=== PATIENT | male | born 1995 | race Caucasian/White ===

== ENCOUNTER 2023-07-24 13:34 | Emergency (ER) | payer OTHER, SELFPAY ==
--- NOTE | ~2023-07-24 | CT_ITS ---
EXAMINATION: CT abdomen pelvis w con DATE: 07/24/2023 15:01 INDICATION: Nausea and vomiting. Bowel obstruction. Abdominal pain. TECHNIQUE: Computed tomography (CT) of the abdomen and pelvis was performed with 100 mL Omnipaque 350 intravenous contrast. Automated exposure control and iterative reconstruction technique were employe d. The dose-length product was 1754.28 mGy-cm. COMPARISON: None. FINDINGS: The visualized portions of the lung bases are clear without pneumonia or pleural effusion. The heart size is normal. No pericardial effusion. The liver, gallbladder, spleen, pancreas, adrenal glands, and kidneys are normal. There is prominent fat in the inguinal canals that may be hernias. Th ere are no dilated loops of bowel. The appendix is normal. There are no pathologically enlarged lymph nodes. There is no free intraperitoneal fluid. There is a 4.9 x 1.8 cm subcutaneous mass in right bu ttock with tract to the skin. There is mild lumbar spondylosis. IMPRESSION: 1. Prominent fat in the inguinal canals that may be hernias. 2. 4.9 x 1.8 cm subcutaneous mass in right buttock with tract to the skin. This finding may be a jake al or infection/scarring. Reviewed, dictated and finalized at location E. IMPRESSION: 1. Prominent fat in the inguinal canals that may be hernias. 2. 4.9 x 1.8 cm subcutaneous mass in right buttock with tract to the skin. This finding may be a hematoma or infection/scarring.
[2023-07-24 13:55] VITALS: BP 143/92; PULSE 101; RESP 20; TEMP 36.7; O2SAT 97
[2023-07-24 14:33] LABS: Appearance Urine Clear (Clear); Bilirubin Urine Negative (Negative); Blood Urine Negative (Negative); Color Urine Yellow (Yellow); Glucose Urine UA Negative (Negative); Ketones Urine Trace mg/dL (Negative); Leukocyte Esterase Ur Negative LEU/UL (Negative); Nitrate Urine Negative (Negative); Protein Urine Negative (Negative); Specific Grav Ur 1.024 (1.001-1.035)
--- NOTE | 2023-07-24 14:34 | ED.ABDPAIN ---
HPI - Abdominal Pain General Chief Complaint: Abdominal Pain <THUY Navarrete Last Filed: 07/24/23 18:53> Stated Complaint: abd pain, nausea, diarrhea <THUY Navarrete Last Filed: 07/24/23 18:53> Time Seen by Provider: 07/24/23 14:34 <THUY Navarrete Last Filed: 07/24/23 18:53> Source: patient <THUY Navarrete Last Filed: 07/24/23 18:53> Mode of arrival: ambulatory <THUY Navarrete Last Filed: 07/24/23 18:53> Limitations: no limitations <THUY Navarrete Last Filed: 07/24/23 18:53> History of Present Illness HPI narrative: Patient is a 28-year-old male, with past medical history of bowel obstruction, who presents to the ED with multiple complaints. Patient reports having intermittent and alternating diarrhea and constipation for the last several weeks. Last bowel movement this morning, loose and green in color. He denies rectal bleeding or melena. He has also had intermittent upper abdominal and periumbilical pain over the last several weeks. Reports nausea with a few episodes of emesis. Denies fever, urinary complaints. Patient mentions he is new to the area and is working on getting a primary care doctor. He has been out of his blood pressure medicine. He is unsure what medicine he takes. <THUY Navarrete Last Filed: 07/24/23 18:53> Related Data Allergies/Adverse Reactions: Allergies Allergy/AdvReac Type Severity Reaction Status Date / Time No Known Allergies Allergy Verified 07/27/23 10:06 <THUY Navarrete Last Filed: 07/24/23 18:53> Review of Systems Review of Systems: CONSTITUTIONAL: Denies fever, chills, or sweats. GASTROINTESTINAL: See HPI. GENITOURINARY: Denies dysuria or hematuria. NEUROLOGIC: Denies headache, numbness, or weakness. <THUY Navarrete Last Filed: 07/24/23 18:53> All systems reviewed & are unremarkable except as noted in HPI and below <Denisha Anand PA-C - Last Filed: 07/24/23 18:53> [facility] Past Medical History Medical History: Medical History Anxiety Bowel obstruction Headache HTN (hypertension) <Denisha Anand PA-C - Last Filed: 07/24/23 18:53> Family History Family History: Family History Father Alcoholism Diabetes mellitus Depression Heart disease Mother Depression Heart disease Sibling Depression Grandparent Cancer Depression Heart disease Grandparent Alcoholism Diabetes mellitus Cerebrovascular accident Heart disease Carcinoma of colon <Denisha Anand PA-C - Last Filed: 07/24/23 18:53> Social History Social History: Social History Smoking packs per day: 1 Smoking cigarettes per day: 20.0 Smoking status: Current every day smoker Tobacco type: cigarettes Alcohol intake: never Substance use: current Substance use type: marijuana Living arrangements: with roommate(s) Occupation/Education: occupation Additional occupation/education comments: Tech at [employer] Gender identity (if verbalized by the patient): Male Agree to blood products: Yes <THUY Navarrete Last Filed: 07/24/23 18:53> Exam Narrative: GENERAL: Well appearing, morbidly obese with BMI of 43.0, non-toxic, in no acute distress. HEAD: Normocephalic, atraumatic. NECK: Supple. No adenopathy, no masses. RESPIRATORY: Airway patent, respirations nonlabored. Clear to auscultation bilaterally, no rales, rhonchi, wheezing. CARDIOVASCULAR: Regular rate and rhythm without murmurs, rubs, or gallops. Radial pulses 2+ and equal bilaterally. ABDOMINAL: Soft, moderate tenderness in epigastric region and right upper quadrant, nondistended, no hepatosplenomegaly. Normoactive BS. MUSCULOSKELETAL: Mov
[2023-07-24 14:35] LABS: Basophils Percent Auto 0.2 % (0.2-1.2); Eosinophils Absolute Auto 0.2 K/mm3 (0-0.3); Eosinophils Percent Auto 2.1 % (0-4.4); Hematocrit 43.6 % (42.0-52.0); Hemoglobin 14.7 g/dL (14.0-18.0); Immature Granulocyte Absolute 0.02 K/mm3 (0.00-0.031); Immature Granulocyte Percent A 0.2 % (0-0.5); Lymphocytes Absolute Auto 2.25 K/mm3 (0.9-3.2); Lymphocytes Percent Auto 27.6 % (18.3-44.2); Mean Corpuscular HGB Conc 33.7 g/dl (32-36); Mean Corpuscular Hemoglobin 29.8 pg (26-34); Mean Corpuscular Volume 88.4 fl (80-100); Mean Platelet Volume 10.7 fl (7.4-10.4); Monocytes Absolute Auto 0.6 K/mm3 (0.1-0.6); Monocytes Percent Auto 7.9 % (2.6-8.5); Neutrophils Absolute Auto 5.1 K/mm3 (1.3-6.7); Platelet Count Result 202 k/mm3 (150-375); Red Blood Count 4.93 M/mm3 (4.6-6.20); Red Cell Distribution Width 12.3 % (11.5-14.5); White Blood Count 8.2 K/mm3 (4.5-10.0)
[2023-07-24 14:36] LABS: Add Urine Microscopic? NO
[2023-07-24] MEDS: ONDANSETRON INJ 4 MG/2 ML VIAL IV PUSH (14:42)
[2023-07-24] MEDS: PANTOPRAZOLE SODIUM IV 40 MG VIAL IV PUSH (14:42)
[2023-07-24 14:44] LABS: Alanine Aminotransferase 27 U/L (6-50); Albumin Level 4.3 g/dL (3.5-5.1); Alkaline Phosphatase 65 U/L (38-126); Anion Gap 8 mmol/L (8-16); Aspartate Amino Transferase 24 U/L (17-59); Bilirubin,Total 0.6 mg/dL (0.2-1.3); Blood Urea Nitrogen 9 mg/dL (9-20); Calcium 8.8 mg/dL (8.4-10.2); Carbon Dioxide 25 mmol/L (22-30); Chloride 104 mmol/L (98-107); Estimated CRCL calculation 197 ml/min; Estimated Glomerular Filt Rate > 60; Glucose 130 mg/dL (65-110); Lipase 67 U/L (23-300); Potassium 3.6 mmol/L (3.4-5.0); Sodium 137 mmol/L (137-145)
[2023-07-24 14:45] LABS: Lactic Acid Reflex 1.4 mmol/L (0.7-2.0)
[2023-07-24 16:10] VITALS: BP 120/76; PULSE 76; RESP 20; O2SAT 100
== END 2023-07-24 16:19 | disposition home or self-care (01) ==
PROVIDERS: Emergency Provider Emergency Medicine
DX: R19.7 Diarrhea, unspecified (principal); R11.2 Nausea with vomiting, unspecified; R10.10 Upper abdominal pain, unspecified; R10.33 Periumbilical pain; I10 Essential (primary) hypertension; R22.2 Localized swelling, mass and lump, trunk
CPT/HCPCS: 36415; 74177; 80053; 81003; 83605; 83690; 85025; 96374; 96375; 99284; C9113; J2405; Q9967